=== PATIENT | female | born 1950 | race Caucasian/White ===

== ENCOUNTER 2018-07-14 05:27 | Inpatient (IN) | payer MEDICARE, BC ==
[~2018-07-14] VITALS: Ht 152.4 cm; Wt 77.3 kg
[~2018-07-14 05:27] MED LIST: ACYC-114 PO; ASPI81TA45 PO; ATOR20TA37 PO; CALC0.25 PO; CALCIUM PO; ENOX40SY4 SQ; FOLI-17 PO; HYDR-3307 PO; HYDR25TA6 PO; LEFL20TA16 PO; LEVO75TA5 PO; LISI-170 PO; MELATONIN PO; OMEG1CAP6 PO; TOCI162D SC; VITA100C8 PO
[2018-07-14] MEDS ORDERED: LACTATED RINGERS 1,000 ML IV SCH (06:10)
[2018-07-14 06:13] VITALS: BP 134/75
[2018-07-14] MEDS ORDERED: PLEASE ENTER HEIGHT AND WEIGHT MC SCH (06:30)
[2018-07-14] MEDS ORDERED: PLEASE ENTER ALLERGIES MC SCH (06:30)
[2018-07-14] MEDS ORDERED: BUPIVACAINE/PF 0.25% ONE (06:50)
[2018-07-14] MEDS ORDERED: LIDOCAINE/PF 0.5% ,50ML ONE (06:50)
[2018-07-14] MEDS ORDERED: VANCOMYCIN 1,000 MG ONE (06:51)
[2018-07-14] MEDS ORDERED: THROMBIN 20,000 UNIT VIAL TP ONE ×2 (06:51→08:29)
[2018-07-14] MEDS ORDERED: TOBRAMYCIN SULFATE 1.2 GM IMP ONE (06:51)
[2018-07-14] MEDS ORDERED: EPINEPHRINE 1 MG/ML, 1ML ONE (06:51)
[2018-07-14] MEDS ORDERED: MIDAZOLAM 1 MG/ML, 2ML ONE (07:12)
[2018-07-14] MEDS ORDERED: FENTANYL PF 250 MCG/5ML ONE (07:12)
[2018-07-14] MEDS ORDERED: CEFAZOLIN 1,000 MG ONE (07:53)
[2018-07-14] MEDS ORDERED: DEXAMETHASONE 4 MG/ML, 1ML ONE (07:53)
[2018-07-14] MEDS ORDERED: ROCURONIUM 10 MG/ML,10ML ONE (07:53)
[2018-07-14] MEDS ORDERED: PROPOFOL 10 MG/ML, 20ML ONE (07:53)
[2018-07-14] MEDS ORDERED: ONDANSETRON 2MG/ML, 2ML ONE ×2 (07:53→10:36)
[2018-07-14] MEDS ORDERED: VANCOMYCIN 1,000 MG IM ONE (08:29)
[2018-07-14] MEDS ORDERED: TOBRAMYCIN SULFATE 1.2 GM IMP IMPLANT ONE (08:29)
[2018-07-14] MEDS ORDERED: LIDOCAINE 0.5%-EPI 1:200K, 50ML INFIL ONE (08:29)
[2018-07-14] MEDS ORDERED: LABETALOL 5MG/ML, 20ML IV PRN (08:30)
[2018-07-14] MEDS ORDERED: ALBUTEROL SULFATE 2.5 MG/3 ML NPPB PRN (08:30)
[2018-07-14] MEDS ORDERED: PROMETHAZINE 25 MG/ML, 1ML IV PRN (08:30)
[2018-07-14] MEDS ORDERED: DIAZEPAM 5 MG/ML, 2ML IVPush PRN (08:30)
[2018-07-14] MEDS ORDERED: OXYcodone 5 MG/5 ML ORAL.SOL UDC PO PRN (08:30)
[2018-07-14] MEDS ORDERED: ACETAMINOPHEN 325 MG TABLET PO PRN (08:30)
[2018-07-14] MEDS ORDERED: hydrALAzine 20 MG/ML, 1ML IV PRN (08:30)
[2018-07-14] MEDS ORDERED: MEPERIDINE/PF 25MG/0.5ML IVPush PRN (08:30)
[2018-07-14] MEDS ORDERED: SUGAMMADEX 200 MG/2 ML IVPush ONE (10:01)
[2018-07-14] MEDS ORDERED: FENTANYL PF 100 MCG/2ML ONE (10:36)
[2018-07-14] MEDS ORDERED: OXYcodone 5 MG/5 ML ORAL.SOL UDC ONE (10:36)
[2018-07-14] MEDS ORDERED: ACETAMINOPHEN 650 MG/20.3 ML UDC ONE (10:36)
[2018-07-14] MEDS: FENTANYL PF 100 MCG/2ML IV PRN ×3 (10:39→10:57)
[2018-07-14] MEDS ORDERED: HYDROmorphone 2 MG/ML, 1ML ONE (10:59)
[2018-07-14] MEDS ORDERED: ONDANSETRON 2MG/ML, 2ML IVPush ONE (11:00)
[2018-07-14] MEDS: HYDROmorphone 2 MG/ML, 1ML IVPush PRN ×4 (11:02→11:50)
[2018-07-14 12:27] VITALS: BP 112/70
[2018-07-14] MEDS ORDERED: HYDROcodone/APAP 5/325 TABLET PO PRN (13:00)
[2018-07-14] MEDS ORDERED: MAGNESIUM HYDROXIDE 8%, 30ML UDC PO PRN (13:00)
[2018-07-14] MEDS ORDERED: BISACODYL 10 MG SUPP PR PRN (13:00)
[2018-07-14] MEDS ORDERED: DIPHENHYDRAMINE 50 MG CAPSULE PO PRN (13:00)
[2018-07-14] MEDS ORDERED: PROMETHAZINE 25 MG/ML, 1ML IM PRN (13:00)
[2018-07-14] MEDS ORDERED: ONDANSETRON 2MG/ML, 2ML IV PRN (13:00)
[2018-07-14] MEDS ORDERED: DIPHENHYDRAMINE 50 MG/ML, 1ML IM PRN (13:00)
[2018-07-14] MEDS ORDERED: DIPHENHYDRAMINE 50 MG/ML, 1ML IVPush PRN (13:00)
[2018-07-14] MEDS: D5%-0.9% NACL+KCL 20MEQ 1,000 ML IV SCH ×2 (13:42→23:31)
[2018-07-14] MEDS ORDERED: HYDROmorphone PCA 30 MG/30 ML IV PRN (14:00)
[2018-07-14] MEDS: CEFAZOLIN PMX 1GM/50ML 50 ML IVPB SCH ×2 (15:53→23:31)
[2018-07-14 19:08] VITALS: BP 120/78
[2018-07-14] MEDS: SENNA/DOCUSATE TABLET PO SCH (21:00)
[2018-07-15 01:40] VITALS: BP 106/60
[2018-07-15 03:07] VITALS: BP 122/55
[2018-07-15] MEDS: HYDROcodone/APAP 10/325 MG TABLET PO PRN ×5 (04:35→21:21)
[2018-07-15 04:53] LABS: BASOPHILS # (AUTO) 0.03 x10^3/uL (0-0.1); BASOPHILS % (AUTO) 1 % (0-1); EOSINOPHILS # (AUTO) 0.16 x10^3/uL (0-0.4); EOSINOPHILS % (AUTO) 2 % (1-7); LYMPHOCYTES # (AUTO) 1.63 x10^3/uL (1-3.4); LYMPHOCYTES % (AUTO) 23 % (22-44); MD NO; MEAN CORPUSCULAR HEMOGLOBIN 29.8 pg (27.0-34.8); MEAN CORPUSCULAR HGB CONC 33.8 g/dL (32.4-35.8); MEAN CORPUSCULAR VOLUME 88.2 fL (80-100); MEAN PLATELET VOLUME 7.6 fL (7.4-10.4); MONOCYTES # (AUTO) 0.65 x10^3/uL (0.2-0.8); MONOCYTES % (AUTO) 9 % (2-9); NEUTROPHILS # (AUTO) 4.71 x10^3/uL (1.8-6.8); NEUTROPHILS % (AUTO) 66 % (42-75); PLATELET COUNT 309 x10^3/uL (130-400); RED CELL DISTRIBUTION WIDTH 13.5 % (9.6-15.2)
[2018-07-15 05:03] LABS: CALCIUM 8.2 mg/dL (8.5-10.1); CHLORIDE 109 mmol/L (98-107)
[2018-07-15 05:09] LABS: ALANINE AMINOTRANSFERASE 23 U/L (12-78); ALBUMIN 3.1 g/dL (3.4-5.0); ALKALINE PHOSPHATASE 80 U/L (45-117); ANION GAP 3 mmol/L (5-15); BILIRUBIN,TOTAL 0.3 mg/dL (0.2-1.0); CREATININE 0.86 mg/dL (0.55-1.02); TOTAL PROTEIN 5.6 g/dL (6.4-8.2)
[2018-07-15] MEDS: LEVOTHYROXINE 75 MCG TABLET PO SCH (05:46)
[2018-07-15] MEDS: SENNA/DOCUSATE TABLET PO SCH ×2 (08:02→19:34)
[2018-07-15] MEDS: LISINOPRIL 20 MG TABLET PO SCH (08:03)
[2018-07-15 08:15] VITALS: BP 102/56
[2018-07-15] MEDS: D5%-0.9% NACL+KCL 20MEQ 1,000 ML IV SCH ×2 (09:29→21:21)
[2018-07-15 14:15] VITALS: BP 109/67
[2018-07-15] MEDS ORDERED: METHOCARBAMOL 1,000 MG in DEXTROSE 5% 100 ML IV ONE (15:00)
[2018-07-15 18:34] VITALS: BP 122/61
[2018-07-15] MEDS: METHOCARBAMOL 750 MG in DEXTROSE 5% 100 ML IV SCH (22:36)
[2018-07-15] MEDS: MORPHINE SULFATE 4 MG/ML, 1ML IVPush PRN (22:36)
[2018-07-16 00:27] VITALS: BP 120/65
[2018-07-16] MEDS: HYDROcodone/APAP 10/325 MG TABLET PO PRN ×5 (01:07→23:47)
[2018-07-16 05:18] LABS: ANION GAP 3 mmol/L (5-15); CALCIUM 8.1 mg/dL (8.5-10.1); CHLORIDE 112 mmol/L (98-107)
[2018-07-16 05:19] LABS: BASOPHILS # (AUTO) 0.06 x10^3/uL (0-0.1); BASOPHILS % (AUTO) 1 % (0-1); CREATININE 0.78 mg/dL (0.55-1.02); EOSINOPHILS # (AUTO) 0.62 x10^3/uL (0-0.4); EOSINOPHILS % (AUTO) 6 % (1-7); LYMPHOCYTES # (AUTO) 1.89 x10^3/uL (1-3.4); LYMPHOCYTES % (AUTO) 17 % (22-44); MD NO; MEAN CORPUSCULAR HEMOGLOBIN 29.8 pg (27.0-34.8); MEAN CORPUSCULAR HGB CONC 33.5 g/dL (32.4-35.8); MEAN CORPUSCULAR VOLUME 89.1 fL (80-100); MEAN PLATELET VOLUME 7.7 fL (7.4-10.4); MONOCYTES # (AUTO) 0.53 x10^3/uL (0.2-0.8); MONOCYTES % (AUTO) 5 % (2-9); NEUTROPHILS # (AUTO) 7.86 x10^3/uL (1.8-6.8); NEUTROPHILS % (AUTO) 72 % (42-75); PLATELET COUNT 319 x10^3/uL (130-400); RED BLOOD COUNT 4.27 x10^6/uL (3.82-5.3); RED CELL DISTRIBUTION WIDTH 13.7 % (9.6-15.2)
[2018-07-16] MEDS: MORPHINE SULFATE 4 MG/ML, 1ML IVPush PRN ×3 (05:19→23:11)
[2018-07-16] MEDS: LEVOTHYROXINE 75 MCG TABLET PO SCH (06:05)
[2018-07-16] MEDS ORDERED: LORazepam 2 MG/ML, 1ML IVPush PRN (06:30)
[2018-07-16] MEDS: D5%-0.9% NACL+KCL 20MEQ 1,000 ML IV SCH ×2 (07:00→17:00)
[2018-07-16] MEDS: METHOCARBAMOL 750 MG in DEXTROSE 5% 100 ML IV SCH ×3 (07:57→23:08)
[2018-07-16 08:14] VITALS: BP 165/89
[2018-07-16] MEDS: SENNA/DOCUSATE TABLET PO SCH ×2 (08:37→19:54)
[2018-07-16] MEDS: LISINOPRIL 20 MG TABLET PO SCH (08:37)
[2018-07-16] MEDS ORDERED: LEFLUNOMIDE 20 MG TABLET PO SCH (09:00)
[2018-07-16 14:10] VITALS: BP 163/84
[2018-07-16 19:21] VITALS: BP 132/77
[2018-07-17 00:54] VITALS: BP 139/78
[2018-07-17] MEDS: MORPHINE SULFATE 4 MG/ML, 1ML IVPush PRN (01:29)
[2018-07-17] MEDS: D5%-0.9% NACL+KCL 20MEQ 1,000 ML IV SCH ×2 (03:00→16:29)
[2018-07-17] MEDS: HYDROcodone/APAP 10/325 MG TABLET PO PRN ×5 (04:21→22:06)
[2018-07-17] MEDS: LEVOTHYROXINE 75 MCG TABLET PO SCH (06:34)
[2018-07-17] MEDS: METHOCARBAMOL 750 MG in DEXTROSE 5% 100 ML IV SCH ×2 (06:35→14:56)
[2018-07-17 07:41] VITALS: BP 131/77
[2018-07-17] MEDS: LISINOPRIL 20 MG TABLET PO SCH (08:09)
[2018-07-17] MEDS: SENNA/DOCUSATE TABLET PO SCH ×2 (08:10→22:06)
[2018-07-17 14:23] VITALS: BP 122/75
[2018-07-17 19:45] VITALS: BP 118/65
[2018-07-17] MEDS: METHOCARBAMOL 750 MG TABLET PO SCH (22:06)
[2018-07-17] MEDS ORDERED: METHOCARBAMOL 750 MG TABLET PO SCH (23:00)
[2018-07-18] MEDS: HYDROcodone/APAP 10/325 MG TABLET PO PRN ×6 (02:02→23:21)
[2018-07-18] MEDS: D5%-0.9% NACL+KCL 20MEQ 1,000 ML IV SCH ×3 (02:02→23:00)
[2018-07-18 02:03] VITALS: BP 132/77
[2018-07-18] MEDS: LEVOTHYROXINE 75 MCG TABLET PO SCH (05:59)
[2018-07-18] MEDS: METHOCARBAMOL 750 MG TABLET PO SCH ×3 (05:59→21:50)
[2018-07-18 07:57] VITALS: BP 111/64
[2018-07-18] MEDS: LISINOPRIL 20 MG TABLET PO SCH (08:07)
[2018-07-18] MEDS: SENNA/DOCUSATE TABLET PO SCH ×2 (08:07→19:14)
[2018-07-18 14:01] VITALS: BP 119/55
[2018-07-18 19:32] VITALS: BP 111/77
[2018-07-19 03:33] VITALS: BP 105/62
[2018-07-19] MEDS: HYDROcodone/APAP 10/325 MG TABLET PO PRN ×4 (03:37→16:05)
[2018-07-19] MEDS: METHOCARBAMOL 750 MG TABLET PO SCH ×2 (05:38→14:45)
[2018-07-19] MEDS: LEVOTHYROXINE 75 MCG TABLET PO SCH (05:39)
[2018-07-19 06:59] VITALS: BP 104/64
[2018-07-19] MEDS: D5%-0.9% NACL+KCL 20MEQ 1,000 ML IV SCH (07:58)
[2018-07-19] MEDS: LISINOPRIL 20 MG TABLET PO SCH (07:58)
[2018-07-19] MEDS: SENNA/DOCUSATE TABLET PO SCH (07:58)
[2018-07-19 13:48] VITALS: BP 114/56
[2018-07-19] MEDS ORDERED: SENN-177 PO (15:16)
== END 2018-07-19 16:45 | disposition home or self-care (01) | DRG 460 ==
LOC: ORIP 05:27 → 4NOR 12:13 → DCLOUNGE 07-19 16:35
PROVIDERS: ADMIT Orthopaedic Surgery Orthopaedic Surgery of the Spine; ATTEND Orthopaedic Surgery Orthopaedic Surgery of the Spine
PROC: 00QT0ZZ Repair Spinal Meninges, Open Approach (ICD-10-PCS; 2018-07-14)
PROC: 3E0U0GB Introduction of Recombinant Bone Morphogenetic Protein into Joints, Open Approach (ICD-10-PCS; 2018-07-14)
PROC: 0SG00K1 Fusion of Lumbar Vertebral Joint with Nonautologous Tissue Substitute, Posterior Approach, Posterior Column, Open Approach (ICD-10-PCS; principal; 2018-07-14 07:30)
DX: M48.061 Spinal stenosis, lumbar region without neurogenic claudication (principal); G96.11 Dural tear; M43.16 Spondylolisthesis, lumbar region; M47.812 Spondylosis without myelopathy or radiculopathy, cervical region; I10 Essential (primary) hypertension; Z90.89 Acquired absence of other organs
CPT/HCPCS: 36415; 72100; 80048; 80053; 85025; G0378; J0171; J0690; J1100; J1170; J2001; J2250; J2270; J2405; J2704; J3010; J3260; J3360; J3370; J3490; C1762; C1781; J1200; J2800; J3480; J7120

== ENCOUNTER 2018-09-22 09:18 | Inpatient (IN) | payer MEDICARE, BC ==
[~2018-09-22] VITALS: Ht 149.9 cm; Wt 67.8 kg
[~2018-09-22 09:18] MED LIST changes: +SENN-177 PO
[2018-09-22] MEDS ORDERED: LACTATED RINGERS 1,000 ML IV SCH (09:41)
[2018-09-22] MEDS ORDERED: FENTANYL PF 250 MCG/5ML ONE (09:55)
[2018-09-22] MEDS ORDERED: MIDAZOLAM 1 MG/ML, 2ML ONE (09:55)
[2018-09-22] MEDS ORDERED: NEOSTIGMINE 1 MG/ML, 10ML ONE (09:59)
[2018-09-22] MEDS ORDERED: PROPOFOL 10 MG/ML, 20ML ONE (09:59)
[2018-09-22] MEDS ORDERED: ROCURONIUM 10MG/ML,5ML ONE (09:59)
[2018-09-22] MEDS ORDERED: DEXAMETHASONE 4 MG/ML, 1ML ONE (09:59)
[2018-09-22] MEDS ORDERED: GLYCOPYRROLATE 0.2MG/1ML, 5ML ONE (09:59)
[2018-09-22] MEDS ORDERED: ONDANSETRON 2MG/ML, 2ML ONE (09:59)
[2018-09-22] MEDS ORDERED: CEFAZOLIN 1,000 MG ONE (09:59)
[2018-09-22] MEDS ORDERED: ACETAMINOPHEN 500 MG TABLET PO ONE (10:00)
[2018-09-22] MEDS ORDERED: PLEASE ENTER HEIGHT AND WEIGHT MC SCH (10:00)
[2018-09-22] MEDS ORDERED: PLEASE ENTER ALLERGIES MC SCH (10:00)
[2018-09-22] MEDS ORDERED: GABAPENTIN 300 MG CAPSULE PO ONE (10:00)
[2018-09-22 10:07] VITALS: BP 120/78
[2018-09-22 10:17] LABS: MICROSCOPIC NOT IND
[2018-09-22 10:24] LABS: CULTURE INDICATED? NO
[2018-09-22] MEDS ORDERED: HYDR25TA11 PO (10:31)
[2018-09-22] MEDS ORDERED: ACET-1600 PO (10:31)
[2018-09-22] MEDS ORDERED: HYDR-3245 PO (10:31)
[2018-09-22] MEDS ORDERED: EPINEPHRINE 1 MG/ML, 1ML ONE (10:58)
[2018-09-22] MEDS ORDERED: LIDOCAINE/PF 0.5% ,50ML ONE (10:58)
[2018-09-22] MEDS ORDERED: VANCOMYCIN 1,000 MG ONE (10:58)
[2018-09-22] MEDS ORDERED: THROMBIN 5,000 UNIT VIAL TP ONE (10:58)
[2018-09-22] MEDS ORDERED: TOBRAMYCIN SULFATE 1.2 GM IMP ONE (10:58)
[2018-09-22] MEDS ORDERED: BUPIVACAINE/PF 0.25% ONE (10:58)
[2018-09-22] MEDS ORDERED: PHENYLEPHRINE 10 MG/ML ONE (11:21)
[2018-09-22] MEDS ORDERED: MEPERIDINE/PF 25MG/0.5ML IVPush PRN (11:30)
[2018-09-22] MEDS ORDERED: PROMETHAZINE 25 MG/ML, 1ML IV PRN (11:30)
[2018-09-22] MEDS ORDERED: hydrALAzine 20 MG/ML, 1ML IV PRN (11:30)
[2018-09-22] MEDS ORDERED: HALOPERIDOL 5 MG/ML IV PRN (11:30)
[2018-09-22] MEDS ORDERED: OXYcodone 5 MG/5 ML ORAL.SOL UDC PO PRN (11:30)
[2018-09-22] MEDS ORDERED: LABETALOL 5MG/ML, 20ML IV PRN (11:30)
[2018-09-22] MEDS ORDERED: PROMETHAZINE 12.5 MG SUPP PR PRN (11:30)
[2018-09-22] MEDS ORDERED: ONDANSETRON 2MG/ML, 2ML IV PRN ×2 (11:30→15:00)
[2018-09-22] MEDS ORDERED: ONDANSETRON ODT 8 MG PO PRN (11:30)
[2018-09-22] MEDS ORDERED: FENTANYL PF 100 MCG/2ML IV PRN (11:30)
[2018-09-22] MEDS ORDERED: PROMETHAZINE 25 MG SUPP PR PRN (11:30)
[2018-09-22] MEDS ORDERED: PROMETHAZINE 25 MG/ML, 1ML IM PRN ×3 (11:30→15:00)
[2018-09-22] MEDS ORDERED: VANCOMYCIN 1,000 MG IM ONE ×2 (12:18→12:19)
[2018-09-22] MEDS: HYDROmorphone 2 MG/ML, 1ML IVPush PRN ×4 (12:51→13:18)
[2018-09-22] MEDS ORDERED: HYDROmorphone 2 MG/ML, 1ML ONE (12:53)
[2018-09-22] MEDS ORDERED: PROMETHAZINE 25 MG/ML, 1ML ONE (12:53)
[2018-09-22] MEDS ORDERED: OXYcodone 5 MG/5 ML ORAL.SOL UDC ONE (13:20)
[2018-09-22] MEDS ORDERED: MEPERIDINE/PF 25MG/ML,1ML ONE (13:20)
[2018-09-22] MEDS ORDERED: METHOCARBAMOL 1,000 MG in DEXTROSE 5% 100 ML IV ONE (13:30)
[2018-09-22 13:55] LABS: BASOPHILS % (AUTO) 2 % (0-1); EOSINOPHILS # (AUTO) 0.17 x10^3/uL (0-0.4); EOSINOPHILS % (AUTO) 4 % (1-7); LYMPHOCYTES # (AUTO) 1.59 x10^3/uL (1-3.4); LYMPHOCYTES % (AUTO) 35 % (22-44); MD NO; MEAN CORPUSCULAR HEMOGLOBIN 29.3 pg (27.0-34.8); MEAN CORPUSCULAR HGB CONC 31.7 g/dL (32.4-35.8); MEAN CORPUSCULAR VOLUME 92.3 fL (80-100); MEAN PLATELET VOLUME 7.1 fL (7.4-10.4); MONOCYTES # (AUTO) 0.31 x10^3/uL (0.2-0.8); MONOCYTES % (AUTO) 7 % (2-9); NEUTROPHILS # (AUTO) 2.36 x10^3/uL (1.8-6.8); NEUTROPHILS % (AUTO) 52 % (42-75); PLATELET COUNT 434 x10^3/uL (130-400); RED BLOOD COUNT 3.87 x10^6/uL (3.82-5.3)
[2018-09-22] MEDS ORDERED: HYDROcodone/APAP 5/325 TABLET PO PRN (15:00)
[2018-09-22] MEDS ORDERED: MAGNESIUM HYDROXIDE 8%, 30ML UDC PO PRN (15:00)
[2018-09-22] MEDS ORDERED: BISACODYL 10 MG SUPP PR PRN (15:00)
[2018-09-22] MEDS ORDERED: METHOCARBAMOL 750 MG TABLET PO PRN (15:00)
[2018-09-22] MEDS ORDERED: ACETAMINOPHEN 500 MG TABLET PO PRN (15:00)
[2018-09-22 15:07] LABS: HCT (SEDRATE) 35.7 % (34.6-47.8)
[2018-09-22] MEDS: D5%-0.9% NACL+KCL 20MEQ 1,000 ML IV SCH (18:25)
[2018-09-22 18:50] VITALS: BP 127/67
[2018-09-22] MEDS: ATORVASTATIN 20 MG TABLET PO SCH (23:20)
[2018-09-22] MEDS: SENNA/DOCUSATE TABLET PO SCH (23:20)
[2018-09-22] MEDS: HYDROcodone/APAP 10/325 MG TABLET PO PRN (23:20)
[2018-09-23 00:05] VITALS: BP 112/69
[2018-09-23] MEDS: D5%-0.9% NACL+KCL 20MEQ 1,000 ML IV SCH ×3 (01:00→21:00)
[2018-09-23 04:06] VITALS: BP 118/72
[2018-09-23] MEDS: LEVOTHYROXINE 75 MCG TABLET PO SCH (06:21)
[2018-09-23] MEDS ORDERED: hydrOXyzine 50MG TABLET ONE (08:04)
[2018-09-23] MEDS: SENNA/DOCUSATE TABLET PO SCH ×2 (08:13→22:50)
[2018-09-23] MEDS: LISINOPRIL 20 MG TABLET PO SCH (08:13)
[2018-09-23] MEDS: HYDROCHLOROTHIAZIDE 25 MG TABLET PO SCH (08:13)
[2018-09-23] MEDS: HYDROcodone/APAP 10/325 MG TABLET PO PRN ×3 (08:14→22:51)
[2018-09-23 08:45] VITALS: BP 102/56
[2018-09-23] MEDS: LEFLUNOMIDE 20 MG TABLET PO SCH (13:22)
[2018-09-23 13:53] VITALS: BP 93/58
[2018-09-23] MEDS ORDERED: CEFAZOLIN PMX 2GM/50ML 50 ML IVPB ONE (15:00)
[2018-09-23] MEDS ORDERED: VANCOMYCIN PMX 1GM/200ML 200 ML IVPB ONE (15:00)
[2018-09-23] MEDS ORDERED: VANCOMYCIN PER PHARMACY MC PRN (16:00)
[2018-09-23] MEDS ORDERED: PHARMACOKINETIC MONITORING MC PRN (17:00)
[2018-09-23] MEDS ORDERED: VANCOMYCIN 1,400 MG in SODIUM CHLORIDE 0.9% 250 ML IV ONE (18:00)
[2018-09-23] MEDS: AMPICILLIN/SULBACTAM 3 GM in SODIUM CHLORIDE 0.9% 100 ML IV SCH ×2 (18:34→22:50)
[2018-09-23 19:03] VITALS: BP 93/42
[2018-09-23] MEDS: ATORVASTATIN 20 MG TABLET PO SCH (22:51)
[2018-09-24 01:10] VITALS: BP 98/62
[2018-09-24] MEDS: AMPICILLIN/SULBACTAM 3 GM in SODIUM CHLORIDE 0.9% 100 ML IV SCH ×3 (04:09→18:01)
[2018-09-24 05:15] LABS: BASOPHILS # (AUTO) 0.13 x10^3/uL (0-0.1); BASOPHILS % (AUTO) 2 % (0-1); EOSINOPHILS # (AUTO) 0.44 x10^3/uL (0-0.4); EOSINOPHILS % (AUTO) 8 % (1-7); LYMPHOCYTES # (AUTO) 2.15 x10^3/uL (1-3.4); LYMPHOCYTES % (AUTO) 37 % (22-44); MD NO; MEAN CORPUSCULAR HEMOGLOBIN 29.1 pg (27.0-34.8); MEAN CORPUSCULAR HGB CONC 31.5 g/dL (32.4-35.8); MEAN CORPUSCULAR VOLUME 92.4 fL (80-100); MEAN PLATELET VOLUME 6.8 fL (7.4-10.4); MONOCYTES # (AUTO) 0.47 x10^3/uL (0.2-0.8); MONOCYTES % (AUTO) 8 % (2-9); NEUTROPHILS % (AUTO) 45 % (42-75); PLATELET COUNT 390 x10^3/uL (130-400); RED BLOOD COUNT 3.43 x10^6/uL (3.82-5.3); RED CELL DISTRIBUTION WIDTH 16.6 % (9.6-15.2)
[2018-09-24 05:32] LABS: CHLORIDE 107 mmol/L (98-107)
[2018-09-24 05:39] LABS: ALANINE AMINOTRANSFERASE 13 U/L (12-78); ALBUMIN 2.5 g/dL (3.4-5.0); ALKALINE PHOSPHATASE 47 U/L (45-117); ANION GAP 7 mmol/L (5-15); BILIRUBIN,TOTAL 0.4 mg/dL (0.2-1.0); CALCIUM 8.4 mg/dL (8.5-10.1); CREATININE 0.79 mg/dL (0.55-1.02); TOTAL PROTEIN 5.4 g/dL (6.4-8.2)
[2018-09-24] MEDS: LEVOTHYROXINE 75 MCG TABLET PO SCH (06:16)
[2018-09-24] MEDS: HYDROcodone/APAP 10/325 MG TABLET PO PRN ×3 (06:16→21:23)
[2018-09-24] MEDS: D5%-0.9% NACL+KCL 20MEQ 1,000 ML IV SCH ×2 (07:00→16:41)
[2018-09-24 07:06] VITALS: BP 98/47
[2018-09-24] MEDS: HYDROCHLOROTHIAZIDE 25 MG TABLET PO SCH (07:30)
[2018-09-24] MEDS: LISINOPRIL 20 MG TABLET PO SCH (07:31)
[2018-09-24] MEDS: SENNA/DOCUSATE TABLET PO SCH ×2 (07:34→21:23)
[2018-09-24] MEDS ORDERED: VANCOMYCIN 1,300 MG in SODIUM CHLORIDE 0.9% 250 ML IV SCH (12:00)
[2018-09-24] MEDS ORDERED: Enoxaparin 1 mg/kg protocol SQ SCH (12:30)
[2018-09-24] MEDS: ENOXAPARIN 80 MG/0.8 ML SQ SCH (13:06)
[2018-09-24 14:58] VITALS: BP 106/43
[2018-09-24 18:45] VITALS: BP 108/80
[2018-09-24] MEDS: SODIUM CHLORIDE FLUSH 10ML SYR IVF SCH (19:36)
[2018-09-24] MEDS: ATORVASTATIN 20 MG TABLET PO SCH (21:23)
[2018-09-25] MEDS: AMPICILLIN/SULBACTAM 3 GM in SODIUM CHLORIDE 0.9% 100 ML IV SCH ×4 (00:42→19:30)
[2018-09-25] MEDS: ENOXAPARIN 80 MG/0.8 ML SQ SCH ×2 (00:43→12:59)
[2018-09-25 01:43] VITALS: BP 102/82
[2018-09-25] MEDS: LEVOTHYROXINE 75 MCG TABLET PO SCH (07:14)
[2018-09-25 08:22] VITALS: BP 123/54
[2018-09-25] MEDS: LISINOPRIL 20 MG TABLET PO SCH (09:47)
[2018-09-25] MEDS: SENNA/DOCUSATE TABLET PO SCH ×2 (09:47→20:21)
[2018-09-25] MEDS: HYDROCHLOROTHIAZIDE 25 MG TABLET PO SCH (09:48)
[2018-09-25] MEDS: LEFLUNOMIDE 20 MG TABLET PO SCH (09:48)
[2018-09-25] MEDS: SODIUM CHLORIDE FLUSH 10ML SYR IVF SCH ×2 (09:48→20:22)
[2018-09-25] MEDS: HYDROcodone/APAP 10/325 MG TABLET PO PRN ×2 (09:50→19:30)
[2018-09-25 14:32] VITALS: BP 121/69
[2018-09-25 18:53] VITALS: BP 117/73
[2018-09-25] MEDS: ATORVASTATIN 20 MG TABLET PO SCH (20:21)
[2018-09-26] MEDS: ENOXAPARIN 80 MG/0.8 ML SQ SCH ×2 (01:32→13:18)
[2018-09-26] MEDS: HYDROcodone/APAP 10/325 MG TABLET PO PRN ×3 (01:32→21:16)
[2018-09-26] MEDS: AMPICILLIN/SULBACTAM 3 GM in SODIUM CHLORIDE 0.9% 100 ML IV SCH ×4 (01:32→19:36)
[2018-09-26 01:35] VITALS: BP 127/82
[2018-09-26] MEDS: LEVOTHYROXINE 75 MCG TABLET PO SCH (05:16)
[2018-09-26 07:20] VITALS: BP 105/70
[2018-09-26] MEDS: HYDROCHLOROTHIAZIDE 25 MG TABLET PO SCH (08:12)
[2018-09-26] MEDS: SENNA/DOCUSATE TABLET PO SCH ×2 (08:12→21:00)
[2018-09-26] MEDS: LISINOPRIL 20 MG TABLET PO SCH (08:13)
[2018-09-26] MEDS: SODIUM CHLORIDE FLUSH 10ML SYR IVF SCH ×2 (08:13→21:15)
[2018-09-26 13:12] VITALS: BP 134/80
[2018-09-26 20:03] VITALS: BP 123/83
[2018-09-26] MEDS: ATORVASTATIN 20 MG TABLET PO SCH (21:15)
[2018-09-27] MEDS: AMPICILLIN/SULBACTAM 3 GM in SODIUM CHLORIDE 0.9% 100 ML IV SCH ×2 (01:34→07:31)
[2018-09-27] MEDS: ENOXAPARIN 80 MG/0.8 ML SQ SCH (01:35)
[2018-09-27 01:41] VITALS: BP 108/60
[2018-09-27] MEDS: LEVOTHYROXINE 75 MCG TABLET PO SCH (05:23)
[2018-09-27] MEDS: HYDROcodone/APAP 10/325 MG TABLET PO PRN ×2 (05:23→20:54)
[2018-09-27 05:39] LABS: BASOPHILS # (AUTO) 0.07 x10^3/uL (0-0.1); BASOPHILS % (AUTO) 1 % (0-1); EOSINOPHILS # (AUTO) 0.66 x10^3/uL (0-0.4); EOSINOPHILS % (AUTO) 13 % (1-7); LYMPHOCYTES # (AUTO) 1.86 x10^3/uL (1-3.4); LYMPHOCYTES % (AUTO) 36 % (22-44); MD NO; MEAN CORPUSCULAR HGB CONC 32.6 g/dL (32.4-35.8); MEAN CORPUSCULAR VOLUME 91.8 fL (80-100); MEAN PLATELET VOLUME 7.4 fL (7.4-10.4); MONOCYTES # (AUTO) 0.52 x10^3/uL (0.2-0.8); MONOCYTES % (AUTO) 10 % (2-9); NEUTROPHILS # (AUTO) 2.13 x10^3/uL (1.8-6.8); NEUTROPHILS % (AUTO) 41 % (42-75); PLATELET COUNT 338 x10^3/uL (130-400); RED BLOOD COUNT 3.34 x10^6/uL (3.82-5.3); RED CELL DISTRIBUTION WIDTH 16.7 % (9.6-15.2)
[2018-09-27 05:42] LABS: HCT (SEDRATE) 30.7 % (34.6-47.8)
[2018-09-27 05:50] LABS: CALCIUM 8.6 mg/dL (8.5-10.1); CHLORIDE 108 mmol/L (98-107)
[2018-09-27 05:56] LABS: ANION GAP 6 mmol/L (5-15); CREATININE 0.76 mg/dL (0.55-1.02)
[2018-09-27 05:57] LABS: ALANINE AMINOTRANSFERASE 17 U/L (12-78); ALBUMIN 2.5 g/dL (3.4-5.0); ALKALINE PHOSPHATASE 57 U/L (45-117); BILIRUBIN,TOTAL 0.3 mg/dL (0.2-1.0); C-REACTIVE PROTEIN, QUANT 0.04 mg/dL (0.02-0.49); TOTAL PROTEIN 5.6 g/dL (6.4-8.2)
[2018-09-27 07:29] VITALS: BP 118/69
[2018-09-27] MEDS: HYDROCHLOROTHIAZIDE 25 MG TABLET PO SCH (07:31)
[2018-09-27] MEDS: LISINOPRIL 20 MG TABLET PO SCH (07:31)
[2018-09-27] MEDS: LEFLUNOMIDE 20 MG TABLET PO SCH (07:32)
[2018-09-27] MEDS: SODIUM CHLORIDE FLUSH 10ML SYR IVF SCH ×2 (07:32→20:53)
[2018-09-27] MEDS: SENNA/DOCUSATE TABLET PO SCH ×2 (07:32→20:48)
[2018-09-27] MEDS: APIXABAN 5 MG TABLET PO SCH ×2 (12:07→23:00)
[2018-09-27] MEDS: CEFTRIAXONE PMX 2GM/50ML 50 ML IV SCH (12:10)
[2018-09-27] MEDS ORDERED: ENOXAPARIN 60 MG/0.6 ML SQ SCH (13:00)
[2018-09-27 15:37] VITALS: BP 127/81
[2018-09-27 20:48] VITALS: BP 100/61
[2018-09-27] MEDS: ATORVASTATIN 20 MG TABLET PO SCH (20:54)
[2018-09-28] MEDS: LEVOTHYROXINE 75 MCG TABLET PO SCH (05:47)
[2018-09-28 05:49] VITALS: BP 108/64
[2018-09-28] MEDS ORDERED: TOCILIZUMAB 162 MG SQ SCH (09:00)
[2018-09-28 09:02] VITALS: BP 113/59
[2018-09-28] MEDS ORDERED: hydrOXyzine 50MG TABLET ONE (09:03)
[2018-09-28] MEDS: HYDROcodone/APAP 10/325 MG TABLET PO PRN ×2 (09:08→16:40)
[2018-09-28] MEDS: APIXABAN 5 MG TABLET PO SCH ×2 (09:08→16:40)
[2018-09-28] MEDS: SODIUM CHLORIDE FLUSH 10ML SYR IVF SCH (09:09)
[2018-09-28] MEDS: LISINOPRIL 20 MG TABLET PO SCH (09:09)
[2018-09-28] MEDS: HYDROCHLOROTHIAZIDE 25 MG TABLET PO SCH (09:09)
[2018-09-28] MEDS: SENNA/DOCUSATE TABLET PO SCH (09:09)
[2018-09-28] MEDS: CEFTRIAXONE PMX 2GM/50ML 50 ML IV SCH (11:15)
[2018-09-28 14:11] VITALS: BP 125/71
[2018-09-28] MEDS ORDERED: CEFT2FRO2 IV (16:10)
[2018-09-28] MEDS ORDERED: APIX5TAB PO ×2 (17:17→17:18)
[2018-10-04] MEDS ORDERED: APIXABAN 5 MG TABLET PO SCH (09:00)
== END 2018-09-28 17:59 | disposition home health service (06) | DRG 857 ==
LOC: OUT 09:18 → 4NOR 14:35 → OUT 14:39 → 4NOR 09-26 05:45
PROVIDERS: ADMIT Orthopaedic Surgery Orthopaedic Surgery of the Spine; ATTEND Orthopaedic Surgery Orthopaedic Surgery of the Spine
PROC: 0J970ZZ Drainage of Back Subcutaneous Tissue and Fascia, Open Approach (ICD-10-PCS; principal; 2018-09-22 12:00)
PROC: 02HV33Z Insertion of Infusion Device into Superior Vena Cava, Percutaneous Approach (ICD-10-PCS; 2018-09-24)
PROC: B5181ZA Fluoroscopy of Superior Vena Cava using Low Osmolar Contrast, Guidance (ICD-10-PCS; 2018-09-24)
PROC: B548ZZA Ultrasonography of Superior Vena Cava, Guidance (ICD-10-PCS; 2018-09-24)
PROC: 05PY33Z Removal of Infusion Device from Upper Vein, Percutaneous Approach (ICD-10-PCS; 2018-09-24)
DX: T81.41XA Infection following a procedure, superficial incisional surgical site, initial encounter (principal); T82.868A Thrombosis due to vascular prosthetic devices, implants and grafts, initial encounter; M86.18 Other acute osteomyelitis, other site; B02.30 Zoster ocular disease, unspecified; M46.26 Osteomyelitis of vertebra, lumbar region; B99.9 Unspecified infectious disease; M43.16 Spondylolisthesis, lumbar region; Z88.5 Allergy status to narcotic agent; I10 Essential (primary) hypertension; M06.9 Rheumatoid arthritis, unspecified; E89.0 Postprocedural hypothyroidism; G47.33 Obstructive sleep apnea (adult) (pediatric); M48.061 Spinal stenosis, lumbar region without neurogenic claudication; Z80.3 Family history of malignant neoplasm of breast; Z82.49 Family history of ischemic heart disease and other diseases of the circulatory system; Z87.891 Personal history of nicotine dependence; Z96.651 Presence of right artificial knee joint; Z98.84 Bariatric surgery status; Y83.8 Other surgical procedures as the cause of abnormal reaction of the patient, or of later complication, without mention of misadventure at the time of the procedure; Y92.89 Other specified places as the place of occurrence of the external cause
CPT/HCPCS: 36415; 36573; 80053; 81003; 85025; 85651; 86140; 87040; 87070; 87075; 87205; 93005; G0378; J0171; J0295; J0690; J0696; J1100; J1170; J1650; J2001; J2175; J2250; J2405; J2550; J2704; J2710; J3010; J3260; J3370; J3490; C1751; J2370; J2800; J3480; J7050; J7120; Q0177

== ENCOUNTER 2018-11-16 07:31 | Inpatient (IN) | payer MEDICARE, BC ==
[~2018-11-16] VITALS: Ht 180.3 cm; Wt 63.0 kg
[2018-11-19 14:01] VITALS: BP 109/71
== END 2018-11-19 15:10 | disposition home health service (06) | DRG 857 ==
LOC: OUT 07:31 → 4NOR 12:11 → OUT 12:47 → DCLOUNGE 11-19 14:49
PROVIDERS: ADMIT Orthopaedic Surgery Orthopaedic Surgery of the Spine; ATTEND Orthopaedic Surgery Orthopaedic Surgery of the Spine
PROC: 0JD70ZZ Extraction of Back Subcutaneous Tissue and Fascia, Open Approach (ICD-10-PCS; principal; 2018-11-16)
DX: T81.41XA Infection following a procedure, superficial incisional surgical site, initial encounter (principal); G95.29 Other cord compression; G47.33 Obstructive sleep apnea (adult) (pediatric); I10 Essential (primary) hypertension; M06.9 Rheumatoid arthritis, unspecified; E78.5 Hyperlipidemia, unspecified; E03.9 Hypothyroidism, unspecified; Z60.2 Problems related to living alone; B99.8 Other infectious disease; Z96.651 Presence of right artificial knee joint; Y83.8 Other surgical procedures as the cause of abnormal reaction of the patient, or of later complication, without mention of misadventure at the time of the procedure; Z80.3 Family history of malignant neoplasm of breast; Z82.49 Family history of ischemic heart disease and other diseases of the circulatory system; Z87.891 Personal history of nicotine dependence; Z98.84 Bariatric surgery status; Z79.899 Other long term (current) drug therapy; Z86.718 Personal history of other venous thrombosis and embolism; Z79.01 Long term (current) use of anticoagulants; Z88.5 Allergy status to narcotic agent; Y93.89 Activity, other specified; Y92.89 Other specified places as the place of occurrence of the external cause
CPT/HCPCS: 36415; 71046; 72158; 80053; 85025; 85610; 85651; 85730; 86140; 87324; A9585; G0378; J0690; J1100; J1170; J1335; J2405; J2704; J2710; J3010; J2370; J3480; J7120